=== PATIENT | female | born 1980 | race Caucasian/White ===

== ENCOUNTER 2019-12-11 14:42 | Emergency (ER) | payer OTHER, SELFPAY ==
[2019-12-11 14:42] VITALS: BP 132/86; PULSE 111; RESP 256; TEMP 36.3; O2SAT 96; BMI 29.2
--- NOTE | 2019-12-11 14:49 | ED.DCSUM_ITS ---
History of Present Illness Chief Complaint: Allergic Reaction Detail of Chief Complaint: Hymenoptera envenomation with history of anaphylaxis Informant: Patient Onset: Hours - 20 minutes prior to arrival Context: Sudden Onset Timing: Continuous Quality: Rash, itching, fullness to lips and tingling Location: Generalized allergic reaction Current Severity: Moderate Maximum Severity: Moderate Worsened by: Hymenoptera envenomation Relieved by: Nothing Associated Symptoms: Shortness of breath Narrative: Patient is a 39-year-old woman with history of anaphylactic reaction to bee sting last summer. She does have an EpiPen. She did not use the EpiPen because last time when she administered the EpiPen she had a rebound reaction 12 hours later and states she almost had to be intubated. She presents now with tingling of her lips, fullness of her lips, pruritic red rash and feeling anxious. She denies wheezing. She denies nausea, vomiting diarrhea. She denies orthostatic symptoms. Prior similar symptoms: Yes - Hymenoptera envenomation Recent Illness/Hospitalization: No - Past Medical History (1) Anaphylactic reaction to bee sting Status: Acute Past Medical History - Allergies and Home Meds Allergies/Adverse Reactions: Allergies bee venom protein (honey bee) Allergy (Verified 12/11/19 14:47) Shortness of breath Prior records reviewed: Yes - Anaphylaxis to bee sting Surgical History: noncontributory Lives: Alone Smoking Status: Current every day smoker Alcohol: None Drugs: None Review of Systems General: Denies: Chills, Fever, Subjective, Sweats Eyes: Denies: Visual changes - bilaterally, Blurred Vision - bilaterally ENT: Reports: - - List of lips and tingling of her lips. Denies: Rhinorrhea, Sore throat Cardiovascular: Reports: Palpitations. Denies: Chest pain, Heart racing Respiratory: Reports: Dyspnea. Denies: Cough, Sputum, Dyspnea on exertion Gastrointestinal: Denies: Abdominal pain, Nausea, Vomiting, Diarrhea Genitourinary: Denies: Dysuria, Hematuria, Frequency Musculoskeletal: Denies: Myalgias, Arthralgias, Neck pain, Back pain, Swelling, Extremity Pain Skin: Reports: Rash. Denies: Wounds Neurological: Denies: Headache, Weakness Endocrine: Denies: Polyuria, Polydipsia Hematologic: Denies: Easy bruising, Easy bleeding Allergy: Reports: Uticaria. Denies: Swelling of the mouth, Swelling of the ton iwona Physical Exam Vital Signs/Narrative: Vital Signs Temp Pulse Resp BP Pulse Ox 12/11/19 14:42 97.4 F L 111 H 256 H 132/86 H 96 Inital Vital Signs reviewed: Yes General: Well nourished, Well developed, Acute Distress - Appears anxious. Head: Normocephalic, Atraumatic Eyes: Perrl, EOMI. Negative for: Pale conjunctiva, Scleral icterus ENT: Moist mucous membranes, No rhinorrhea. Negative for: Nasal congestion Neck: Supple, Nontender, No lymphadenopathy, No JVD, - - Nakul is midline. There is no inspiratory or expiratory stridor. Cardiovascular: Regular rhythm, No murmurs, Normal S1, Normal S2, Tachycardia Respiratory: No distress, CTA bilaterally Abdomen: Soft, Nontender, Nondistended, Normal bowel sounds Rectal: Deferred Back: Nontender, Normal Inspection Extremities: Nontender, No edema Skin: Normal color, Rash - Itching blotchy generalized erythematous rash. Negative for: No rash Neurological: Alert, Oriented x3, Cranial nerves II-XII grossly intact, Normal Strength, Normal Sensation Psychological: Normal affect, Normal Mood Diagnostic/Tx/Re-eval - Medical Decision Making IV was established. Placed on monitor. Patient was treated with epinephrine, Solu-Medrol, Benadryl and Pepcid. Plan is to observe for 4 hours. Patient was checked on at 1515. All of her symptoms have resolved. ED Disposition - Plan for ED Patient: Disposition: Home or Assisted Living Diagnosis: Bee sting-induced anaphylaxis Instructions: ED General Allergic Reactions Prescriptions: Prednisone [Deltasone] 40 mg PO DAILY #10 tab Prescription Printed Famotidine [Pepcid] 20 mg PO BID #7 tab Prescription Printed Referrals: Doctor,Your [STAFF PHYSICIAN] - As Needed
[2019-12-11] MEDS: DiphenhydrAMINE 50 MG/ML Syringe IV (14:54)
[2019-12-11] MEDS: MethylPREDNISolone 125 MG/2 ML Vial IV (14:54)
[2019-12-11] MEDS: Famotidine 200 MG/20 ML MDV 20 MG in 0.9% Normal Saline (Pres. free 8 ML 300 MG IV (15:10)
[2019-12-11 15:34] VITALS: BP 124/68; PULSE 103; RESP 20; O2SAT 97
== END 2019-12-11 15:43 | disposition home or self-care (01) ==
LOC: ED 15:38
PROVIDERS: Emergency Provider Emergency Medicine
DX: T63.441A Toxic effect of venom of bees, accidental (unintentional), initial encounter (principal); T78.2XXA Anaphylactic shock, unspecified, initial encounter; F17.200 Nicotine dependence, unspecified, uncomplicated
CPT/HCPCS: 96372; 96374; 96375; 99283; A4216; J3490

== ENCOUNTER 2021-11-30 20:14 | Emergency (ER) | payer OTHER, SELFPAY ==
[2021-11-30 20:15] VITALS: BP 139/97; PULSE 126; RESP 18; TEMP 36; O2SAT 98; BMI 28.4
--- NOTE | 2021-11-30 20:25 | EDS_ITS ---
HPI History of Present Illness Chief Complaint: Allergic Reaction Informant: patient Narrative Narrative: 41-year-old female states that about 20 minutes prior to arrival she was stung by yellow jacket on her right anterior forearm. She states she has had bad farhad ctions in the past to where they have needed to give her epinephrine Benadryl Pepcid Solu-Medrol and send her home on medicines because she rebounds in the middle the night. After being stung she took 1 Benadryl and came right to the hospital because typically I only have about a 30 to 40-minute window before my throat closes up. She states that she typically does not get hives from the envenomation but she starts to have to clear her throat and it gets more throat like symptoms. [facility] Medical History Depression Glaucoma Home Medications famotidine 20 mg tablet 20 mg PO BID #7 tabs 12/11/19 [Rx Last Taken Unknown] gabapentin 100 mg capsule 200 mg PO TIDCM 12/11/19 [History Last Taken 12/11/19] prednisone 20 mg tablet 40 mg PO DAILY #10 tabs 12/11/19 [Rx Last Taken Unknown] epinephrine 0.3 mg/0.3 mL injection, auto-injector (EpiPen 2-Jarrod) 0.3 mg (0.3 mL) IM Q4H PRN anaphylaxis #2 ea 11/30/21 [Rx Last Taken Unknown] famotidine 20 mg tablet (Pepcid) 20 mg PO BID #6 tabs 11/30/21 [Rx Last Taken Un known] prednisone 20 mg tablet 60 mg PO DAILY #12 TABLETS 11/30/21 [Rx Last Taken Unknown] Allergy/AdvReac Type Severity Reaction Status Date / Time bee venom protein (honey bee) Allergy Shortness Verified 11/30/21 20:15 of breath Social History (Updated 11/30/21 @ 20:[address] Gil Oliveira DO) Smoking Status: Current every day smoker tobacco type: e-cigarettes substance use type: does not use ROS ROS ED Constitutional Constitutional ED: Denies chills or weight loss Eyes Eyes: Denies change in vision or diplopia ENT ENT ED: Reports other Details: Clearing throat ; Denies ear pain, rhinorrhea or sore throat Cardiovascular Cardiovascular: Denies chest pain, orthopnea, palpitations or racing heartbeat Respiratory/Chest Respiratory/Chest: Denies cough, dyspnea or orthopnea Gastrointestinal Gastrointestinal: Denies abdominal pain, diarrhea, nausea or vomiting Genitourinary Genitourinary ED: Denies dysuria, hematuria or urinary frequency Musculoskeletal Musculoskeletal: Denies arthralgias or myalgias Integumentary Denies abscess or rash Neurologic Neurologic: Denies headache(s) or weakness Psychiatric Psychiatric: Denies anxiety, depression, suicidal ideation or suicidal thoughts Endocrine Endocrinology: Denies polydipsia, polyphagia or polyuria Allergic/Immunologic Allergic/Immunologic ED: Denies mouth swelling, tongue swelling or urticaria EXAM Physical Exam Const Vital Signs: 11/30/21 20:15 11/30/21 20:56 11/30/21 22:20 Temperature 96.8 F L Temperature Source Temporal Pulse Rate 126 H 101 H 110 H Respiratory Rate 18 16 16 Blood Pressure 139/97 H Blood Pressure Mean 111 Pulse Ox 98 98 98 Oxygen Delivery Method Room Air Room Air Room Air Positive well nourished and well developed General Appearance ED: well developed HEENT Reports normocephalic, head/scalp atraumatic and moist mucous membranes HEENT Narrative: No tongue lip or uvula swelling. There is no stridor. No hoarse voice Eyes PERRL and EOMs intact bilaterally Neck no lymphadenopathy, supple and no JVD Resp normal respiratory effort and clear to auscultation bilaterally Cardio regular rate, regular rhythm and no murmurs GI normal to inspection, nondistended, normoactive bowel sounds and non-tender Palpation: soft Back/Spine no CVA tenderness and normal ROM Extremity Extremity Narrative: Right anterior forearm demonstrates a 2.5 cm circular area of erythema with a wound in the center of it consistent with a recent bee sting. General Extremety ED: Negative for edema General Extremity: Negative for edema Neuro oriented x3 and CN's II-XII intact bilaterally Sensorium / Orientation: alert Motor Exam: strength 5/5 throughout Psych mental status grossly normal Mood & Affect: Negative for depressed or tearful Skin no wounds General Skin Exam: elasticity normal MDM MDM MDM Narrative Medical decision making narrative: Patient received oral Pepcid prednisone and Benadryl. Repeat examination finds the patient to be be doing better. We have observed her for 2 and half hours. She is out of EpiPen's I will write her for new ones and also continue the Pepcid and prednisone at home. Patient understands follow-up instructions to return if worsening or concerns Discharge Plan Triage Chief Complaint: Allergic Reaction ED Provider: Gil Oliveira Dx/Rx/DC Orders Clinical Impression: Accidental bee sting Instructions: ED BEE STING General Allergic Rxn Prescriptions: New famotidine [Pepcid] 20 mg tablet 20 mg PO BID Qty: 6 0RF prednisone 20 mg tablet 60 mg PO DAILY Qty: 12 0RF epinephrine [EpiPen 2-Jarrod] 0.3 mg/0.3 mL auto-injector 0.3 mg IM Q4H PRN (Reason: anaphylaxis) Qty: 2 0RF No Action gabapentin 100 MG capsule 200 mg PO TIDCM prednisone 20 MG tablet 40 mg PO DAILY Qty: 10 0RF Rx Instructions: With food famotidine 20 MG tablet 20 mg PO BID Qty: 7 0RF Primary Care Provider: Care Physician,No Primary Referrals: Care Physician,No Primary [Primary Care Provider] - Disposition Disposition: Home, Self Care
[2021-11-30] MEDS: predniSONE 20 MG Tablet 60 MG PO (20:28)
[2021-11-30] MEDS: Famotidine 20 MG Tablet 40 MG PO (20:29)
[2021-11-30] MEDS: DiphenhydrAMINE 25 MG Capsule PO (20:29)
[2021-11-30 20:56] VITALS: PULSE 101; RESP 16; O2SAT 98
[2021-11-30 22:20] VITALS: PULSE 110; RESP 16; O2SAT 98
== END 2021-11-30 22:54 | disposition home or self-care (01) ==
PROVIDERS: Emergency Provider Emergency Medicine; Visit Provider Emergency Medicine
DX: T63.441A Toxic effect of venom of bees, accidental (unintentional), initial encounter (principal); F17.290 Nicotine dependence, other tobacco product, uncomplicated
CPT/HCPCS: 99283